=== PATIENT | male | born 1935 | race Native Hawaiian/Other Pacific Islander ===

== ENCOUNTER 2021-09-13 21:53 | Emergency (ER) | payer OTHER ==
[~2021-09-13] VITALS: Ht 177.8 cm; Wt 79.4 kg
[2021-09-13 22:25] LABS: PLATELET COUNT 276 K/uL (142-355)
[2021-09-13 23:55] VITALS: BP 138/63; TEMP 97.8
[2021-09-14] MEDS ORDERED: ALPR0.2566 PO (13:17)
[2021-09-14] MEDS ORDERED: DOFETILIDE125 MCG PO (13:18)
[2021-09-14] MEDS ORDERED: MEMANTINE HYDRO10 MG PO (13:19)
[2021-09-14] MEDS ORDERED: DONEPEZIL HCL23 MG PO (13:19)
[2021-09-14] MEDS ORDERED: NEURONTIN 100M100 MG PO (13:21)
[2021-09-14] MEDS ORDERED: MIDODRINE HYDRO10 MG PO (13:21)
[2021-09-14] MEDS ORDERED: ALBUTEROL108 MCG/AC INH (13:22)
[2021-09-14] MEDS ORDERED: TUMS500 MG PO (13:26)
[2021-09-14] MEDS ORDERED: ONDA4TAB3 PO (13:27)
[2021-09-14] MEDS ORDERED: ASPIR-8181 MG PO (13:28)
[2021-09-14] MEDS ORDERED: MIRALAX17 GM PO (13:29)
[2021-09-14] MEDS ORDERED: DOK100 MG PO (13:29)
[2021-09-14] MEDS ORDERED: GUAI200S10 PO (13:32)
== END 2021-09-13 23:55 | disposition still patient (30) ==
LOC: ED 21:53
PROVIDERS: Emergency Medicine Emergency Medical Services
DX: F03.91 Unspecified dementia, unspecified severity, with behavioral disturbance (principal); Z11.52 Encounter for screening for COVID-19; Z04.6 Encounter for general psychiatric examination, requested by authority
CPT/HCPCS: 36415; 80053; 81000; 85027; 87635; 90471; 90715; 93005; 99283; U0003